=== PATIENT | female | born 1955 | race African-American/Black ===

== ENCOUNTER 2016-10-09 19:46 | Emergency (ER) | payer MEDICARE, MEDICAID ==
[2016-10-09] MEDS ORDERED: Benzonatate 100 MG CAP ONE (21:55)
[2016-10-09] MEDS ORDERED: AMOXicillin 250 MG CAP ONE (21:55)
[2016-10-09] MEDS ORDERED: Azithromycin 250 MG TAB ONE (21:58)
== END 2016-10-09 22:27 | disposition home or self-care (01) ==
LOC: MADERS 19:46
DX: J20.9 Acute bronchitis, unspecified (principal); D69.6 Thrombocytopenia, unspecified; Z79.899 Other long term (current) drug therapy
CPT/HCPCS: 99282

== ENCOUNTER 2016-12-22 19:58 | Outpatient (CLI) | payer MEDICARE, MEDICAID ==
[2016-12-25 02:21] LABS: HPV High Risk Type 16 Negative (Negative); HPV High Risk Type 18 Negative (Negative); HPV Other High Risk Types POSITIVE (Negative)
== END 2016-12-22 19:59 | disposition home or self-care (01) ==
LOC: MADLAB 19:58
PROVIDERS: ATTEND Family Medicine
DX: Z01.419 Encounter for gynecological examination (general) (routine) without abnormal findings (principal)
CPT/HCPCS: 87624; 88142; G0123

== ENCOUNTER 2019-04-09 14:39 | Emergency (ER) | payer MEDICAID, MEDICARE ==
[~2019-04-09 14:39] MED LIST: Iopamidol 370 76% 125 ML VIAL FS ONE; Lorazepam 2 MG/ML VIAL ONE; Sodium Chloride 0.9% 1,000 ML BAG ONE; Sodium Chloride 0.9% 100 ML BAG ONE
[2019-04-09 15:33] LABS: Bilirubin Negative (Negative); Blood, Urine Moderate (Negative); Clarity Clear (Clear); Glucose, Urine (Dipstick) Negative (Negative); Leukocyte Negative (Negative); Nitrite Negative (Negative); Protein, Urine (Dipstick) 30 mg/dL (Neg-Trace); Urobilinogen 0.2 mg/dL (Less than 2)
--- NOTE | 2019-04-09 15:46 | RAD ---
PORTABLE CHEST ONE VIEW: 04/09/19 at 3:37 p.m. HISTORY: Dyspnea after seizure. FINDINGS/IMPRESSION: Comparison is made with exam of 07/14/15. The heart size is borderline. The aorta is tortuous. There is mild pulmonary vascular congestion. No lobar consolidation, pneumothoraces, or large effusions are seen. 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 POS: [facility]
[2019-04-09 15:48] LABS: Bacteria/HPF Rare-Few HPF (None Seen); Squamous Epithelial 0-3 HPF (0-3); WBC/HPF None Seen HPF (0-3)
[2019-04-09 15:51] LABS: #Basophils 0.1 thou/uL (0.0-0.2); #Lymphocytes 0.8 thou/uL (1.20-3.40); #Monocytes 0.3 thou/uL (0.11-0.59); #Neutrophils 4.1 thou/uL (1.40-6.50); %Eosinophils 0.1 % (0.0-10.0); %Lymphocytes 15.2 % (21.0-51.0); %Monocytes 5.7 % (0.0-10.0); %Neutrophils 78.1 % (42.0-75.0); ALT (SGPT) 8 U/L (8-55); AST (SGOT) 11 U/L (5-34); Albumin 3.5 g/dL (3.4-4.8); Alkaline Phosphatase 72 U/L (40-110); Anion Gap 18 mmol/L (10-20); BUN (Urea Nitrogen) 14 mg/dL (9.8-20.1); Bilirubin, Total 0.7 mg/dL (0.2-1.2); Calc. Creatinine Clearance 0 mL/min (70-130); Calcium 8.5 mg/dL (7.8-10.44); Carbon Dioxide 19 mmol/L (23-31); Chloride 110 mmol/L (98-107); Estimated GFR-MDRD 66; Globulin 3.6 g/dL (2.4-3.5); Glucose 135 mg/dL (80-115); Hemoglobin 11.8 g/dL (12.0-16.0); Mean Corpuscular HGB CONC 31.8 g/dL (32.0-36.0); Mean Corpuscular Hemoglobin 28.5 pg (27.0-31.0); Mean Corpuscular Volume 89.6 fL (78.0-98.0); Mean Platelet Volume 6.7 fL (7.4-10.4); Platelet Count 112 thou/uL (130-400); Potassium 3.7 mmol/L (3.5-5.1); Protein, Total 7.1 g/dL (6.0-8.3); RBC Distribution Width 12.8 % (11.5-14.5); Red Blood Cell (RBC) Count 4.15 mill/uL (4.20-5.40); Sodium 143 mmol/L (136-145); White Blood Cell (WBC) Count 5.3 thou/uL (4.8-10.8)
[2019-04-09 15:52] LABS: Platelet Morphology Comment Appears Decreased
[2019-04-09] MEDS ORDERED: Lorazepam 2 MG/ML VIAL ONE (16:47)
[2019-04-09] MEDS ORDERED: Ketamine 50 MG/ML (10ML VIAL) ONE (17:02)
--- NOTE | 2019-04-09 17:41 | CT ---
EXAM: CT angiogram of the chest including 3-D rendering: HISTORY: Shortness of breath with tachycardia COMPARISON: None FINDINGS: Adequate opacification of the central pulmonary arteries. Some of the more peripheral pulmonary arter y ranges are poorly seen because of contrast bolus and because of very severe motion particularly in the mid and lower lung levels. No evidence for aortic aneurysm or dissection. No convincing CT evidence for acute pulmonary embolism. There is severe bilateral linear and interstitial and reticular nodular parenchymal changes with bila teral honeycombing evidence for severe nonspecific chronic interstitial lung disease. Dilatation of the main pulmonary arteries evidence for nonspecific pulmonary artery hypertension. 3 vessel coronary calcific disease. No evidence for mediastinal mass or adenopathy. No evidence for pleural or pericardial effusion. Small hiatal hernia. Some tortuous dilated veins in the mid right lobe of the liver which appear to b e portal veins possibly representing some type of a shunt, malformation, or other abnormal venous vascularity in this region. Conceivably this could be related to old trauma or prior biopsy. IMPRESSION: No convincing CT evidence for acute pulmonary embolism. Severely limited exam because of motion and contrast bolus. Severe lung changes evidence for chronic interstitial disease. Dilated tortuous veins in the mid right lobe of the liver, possibly some type of malformation or shun t. Dilated proximal pulmonary artery segments evidence for pulmonary artery hypertension.
== END 2019-04-09 19:45 | disposition short-term general hospital (02) ==
LOC: MADERS 14:39
DX: R56.9 Unspecified convulsions (principal); R06.03 Acute respiratory distress; R00.0 Tachycardia, unspecified; J45.909 Unspecified asthma, uncomplicated; Z79.51 Long term (current) use of inhaled steroids; Z79.899 Other long term (current) drug therapy
CPT/HCPCS: 36415; 51701; 71045; 71275; 80053; 81003; 81015; 83605; 83735; 83880; 84443; 85025; 87086; 93005; 96361; 96374; 96375; 96376; A4353; J2060; J3490; J7050; J7620; Q9967

== ENCOUNTER 2019-06-27 14:57 | Outpatient (CLI) | payer MEDICARE, MEDICAID ==
--- NOTE | 2019-06-27 15:24 | RAD ---
EXAM: 3 views of the left shoulder HISTORY: Chronic left shoulder pain COMPARISON: None FINDINGS: There is no evidence of acute fracture or dislocation. The patient has a left shoulder pros thesis without perihardware lucency or fracture. No soft tissue swelling is seen. The visualized thorax is unremarkable. IMPRESSION: No evidence of acute osseous abnormality.
--- NOTE | 2019-06-27 15:27 | RAD ---
EXAM: 3 views of the right knee HISTORY: Chronic right knee pain COMPARISON: None FINDINGS: No knee effusion is seen. There is no evidence of acute fracture or dislocation. Moderate f emorotibial joint space narrowing and osteophyte formation is seen. Moderate medial soft tissue swelling is present. IMPRESSION: Moderate right knee osteoarthritis
== END 2019-06-27 14:58 | disposition home or self-care (01) ==
LOC: MADRAD 14:57
PROVIDERS: ATTEND Family Medicine
DX: M25.512 Pain in left shoulder (principal); M25.561 Pain in right knee; G89.29 Other chronic pain; M17.11 Unilateral primary osteoarthritis, right knee

== ENCOUNTER 2019-09-19 16:02 | Outpatient (CLI) | payer MEDICARE, MEDICAID ==
--- NOTE | 2019-09-19 16:36 | RAD ---
Right shoulder 3 views HISTORY: Right shoulder pain. FINDINGS: Complete loss of joint space narrowing at the glenohumeral joint with chronic appearing larisa tructive changes of the articular surfaces of the humeral head and glenoid. Prominent osteophytosis. Heterotopic ossification along the inferior margin. Acromioclavicular alignment is maintained with mild osteophytosis. Prominence of the pulmonary arteries and fibrotic changes of the right upper lung are partially visua lized. IMPRESSION : Somewhat rapid, aggressive appearing erosions/changes of the glenohumeral joint, with destructive traci nges of the glenoid and articular surface of the humeral head. An aggressive process such as infection or neuropathic joint must be considered. Please consider urgent orthopedic evaluation.
== END 2019-09-19 16:03 | disposition home or self-care (01) ==
LOC: MADRAD 16:02
PROVIDERS: ATTEND Family Medicine
DX: M25.511 Pain in right shoulder (principal); R93.7 Abnormal findings on diagnostic imaging of other parts of musculoskeletal system

== ENCOUNTER 2019-11-27 14:11 | Emergency (ER) | payer MEDICARE, MEDICAID ==
[2019-11-27 14:42] LABS: Bilirubin Negative (Negative); Blood, Urine Small (Negative); Glucose, Urine (Dipstick) Negative (Negative); Leukocyte Negative (Negative); Nitrite Negative (Negative); Protein, Urine (Dipstick) > or equal to 300 mg/dL (Neg-Trace)
[2019-11-27 14:43] LABS: Clarity Hazy (Clear)
[2019-11-27] MEDS ORDERED: Sodium Chloride 0.9% 1,000 ML ONE ×4 (14:50→18:37)
[2019-11-27 14:56] LABS: Bacteria/HPF Rare-Few HPF (None Seen); RBC/HPF 0-3 HPF (0-3); Squamous Epithelial 0-3 HPF (0-3); WBC/HPF 0-3 HPF (0-3)
[2019-11-27 14:58] LABS: #Lymphocytes 0.4 thou/uL (1.20-3.40); #Monocytes 0.4 thou/uL (0.11-0.59); #Neutrophils 5.9 thou/uL (1.40-6.50); %Basophils 0.3 % (0.0-1.0); %Lymphocytes 6.3 % (21.0-51.0); %Monocytes 5.5 % (0.0-10.0); %Neutrophils 87.9 % (42.0-75.0); Hemoglobin 12.8 g/dL (12.0-16.0); Mean Corpuscular HGB CONC 31.5 g/dL (32.0-36.0); Mean Corpuscular Hemoglobin 28.6 pg (27.0-31.0); Mean Corpuscular Volume 90.8 fL (78.0-98.0); Mean Platelet Volume 7.2 fL (7.4-10.4); Platelet Count 135 thou/uL (130-400); RBC Distribution Width 12.3 % (11.5-14.5); Red Blood Cell (RBC) Count 4.46 mill/uL (4.20-5.40); White Blood Cell (WBC) Count 6.7 thou/uL (4.8-10.8)
[2019-11-27 15:12] LABS: Anion Gap 20 mmol/L (10-20); BUN (Urea Nitrogen) 19 mg/dL (9.8-20.1); Calc. Creatinine Clearance 0 mL/min (70-130); Calcium 9.6 mg/dL (7.8-10.44); Carbon Dioxide 19 mmol/L (23-31); Chloride 109 mmol/L (98-107); Estimated GFR-MDRD 61; Glucose 151 mg/dL (80-115); Potassium 4.1 mmol/L (3.5-5.1); Sodium 144 mmol/L (136-145)
[2019-11-27 17:59] LABS: Lactic Acid 2.4 mmol/L (0.5-2.2)
[2019-11-27 21:06] LABS: Lactic Acid 0.7 mmol/L (0.5-2.2)
== END 2019-11-27 21:54 | disposition home or self-care (01) ==
LOC: MADERS 14:11
DX: G40.909 Epilepsy, unspecified, not intractable, without status epilepticus (principal); E86.0 Dehydration; J45.909 Unspecified asthma, uncomplicated; Z79.899 Other long term (current) drug therapy
CPT/HCPCS: 36415; 51701; 80048; 81003; 81015; 83605; 84484; 85025; 87040; 93005; 96360; 96361; A4353; J7050

== ENCOUNTER 2020-09-05 16:41 | Inpatient (IN) | payer MEDICARE, MEDICAID ==
[2020-09-05] MEDS: Montelukast Sodium 10 mg Tablet PO SCH (20:13)
[2020-09-05] MEDS: Aspirin 81 mg Enteric Coated Tablet PO SCH (20:13)
[2020-09-05] MEDS: Ascorbic Acid 500 mg Chewable Tablet PO SCH (20:14)
[2020-09-05] MEDS: Acetaminophen 325 MG TAB PO SCH (23:11)
[2020-09-06] MEDS: Acetaminophen 325 MG TAB PO SCH ×4 (05:11→23:13)
[2020-09-06] MEDS: Oxybutynin ER 5 MG TAB PO SCH (08:44)
[2020-09-06] MEDS: levETIRAcetam 500 MG TAB PO SCH (08:44)
[2020-09-06] MEDS: Aspirin 81 mg Enteric Coated Tablet PO SCH ×2 (08:44→20:15)
[2020-09-06] MEDS: Ascorbic Acid 500 mg Chewable Tablet PO SCH ×2 (08:44→20:15)
[2020-09-06] MEDS: Folic Acid 1 MG TAB PO SCH (08:44)
[2020-09-06] MEDS: Acetaminophen/Codeine 30-300mg Tablet PO PRN (10:10)
[2020-09-06] MEDS: Montelukast Sodium 10 mg Tablet PO SCH (20:15)
[2020-09-07] MEDS: Acetaminophen/Codeine 30-300mg Tablet PO PRN (02:00)
[2020-09-07] MEDS: Acetaminophen 325 MG TAB PO SCH ×3 (05:19→18:06)
[2020-09-07] MEDS: Ascorbic Acid 500 mg Chewable Tablet PO SCH ×2 (09:07→22:44)
[2020-09-07] MEDS: Oxybutynin ER 5 MG TAB PO SCH (09:07)
[2020-09-07] MEDS: Aspirin 81 mg Enteric Coated Tablet PO SCH ×2 (09:07→22:45)
[2020-09-07] MEDS: Folic Acid 1 MG TAB PO SCH (09:07)
[2020-09-07] MEDS: levETIRAcetam 500 MG TAB PO SCH (09:07)
[2020-09-07] MEDS: Melatonin 3 MG TAB PO SCH (22:43)
[2020-09-07] MEDS: Montelukast Sodium 10 mg Tablet PO SCH (22:44)
[2020-09-08] MEDS: Acetaminophen 325 MG TAB PO SCH ×4 (00:47→17:27)
[2020-09-08] MEDS: levETIRAcetam 500 MG TAB PO SCH (08:15)
[2020-09-08] MEDS: Ascorbic Acid 500 mg Chewable Tablet PO SCH ×2 (08:15→20:11)
[2020-09-08] MEDS: Aspirin 81 mg Enteric Coated Tablet PO SCH ×2 (08:15→20:12)
[2020-09-08] MEDS: Folic Acid 1 MG TAB PO SCH (08:15)
[2020-09-08] MEDS: Oxybutynin ER 5 MG TAB PO SCH (08:16)
[2020-09-08] MEDS: Acetaminophen/Codeine 30-300mg Tablet PO PRN (10:26)
[2020-09-08] MEDS: Melatonin 3 MG TAB PO SCH (20:12)
[2020-09-08] MEDS: Montelukast Sodium 10 mg Tablet PO SCH (20:12)
[2020-09-09] MEDS: Acetaminophen 325 MG TAB PO SCH ×5 (00:03→23:18)
[2020-09-09] MEDS: Ascorbic Acid 500 mg Chewable Tablet PO SCH ×2 (08:38→20:23)
[2020-09-09] MEDS: Aspirin 81 mg Enteric Coated Tablet PO SCH ×2 (08:38→20:23)
[2020-09-09] MEDS: Oxybutynin ER 5 MG TAB PO SCH (08:39)
[2020-09-09] MEDS: levETIRAcetam 500 MG TAB PO SCH (08:39)
[2020-09-09] MEDS: Folic Acid 1 MG TAB PO SCH (08:39)
[2020-09-09] MEDS: Melatonin 3 MG TAB PO SCH (20:23)
[2020-09-09] MEDS: Montelukast Sodium 10 mg Tablet PO SCH (20:23)
[2020-09-09 22:03] LABS: Bilirubin Negative (Negative); Blood, Urine Trace (Negative); Clarity Slightly Cloudy (Clear); Glucose, Urine (Dipstick) Negative (Negative); Ketone, Urine Negative (Negative); Leukocyte Large (Negative); Nitrite Positive (Negative); Protein, Urine (Dipstick) Negative (Neg-Trace); pH, Urine 6.5 (5.0-9.0)
[2020-09-09 22:09] LABS: Bacteria/HPF 3+ HPF (None Seen); RBC/HPF None Seen HPF (0-3); Squamous Epithelial 0-3 HPF (0-3); WBC/HPF 21-50 HPF (0-3)
[2020-09-09 22:10] LABS: Urine Culture Reflex Yes Yes
[2020-09-09] MEDS ORDERED: Sulfameth/Trimethoprim DS 800-160mg TAB PO SCH (23:15)
[2020-09-10] MEDS: Acetaminophen 325 MG TAB PO SCH ×4 (05:18→23:22)
[2020-09-10] MEDS: Acetaminophen/Codeine 30-300mg Tablet PO PRN (07:27)
[2020-09-10] MEDS: Ascorbic Acid 500 mg Chewable Tablet PO SCH ×2 (09:47→20:48)
[2020-09-10] MEDS: Aspirin 81 mg Enteric Coated Tablet PO SCH ×2 (09:47→20:48)
[2020-09-10] MEDS: Folic Acid 1 MG TAB PO SCH (09:48)
[2020-09-10] MEDS: levETIRAcetam 500 MG TAB PO SCH (09:48)
[2020-09-10] MEDS: Sulfameth/Trimethoprim DS 800-160mg TAB PO SCH ×2 (09:48→20:48)
[2020-09-10] MEDS: Oxybutynin ER 5 MG TAB PO SCH (09:48)
[2020-09-10] MEDS: Montelukast Sodium 10 mg Tablet PO SCH (20:48)
[2020-09-10] MEDS: Melatonin 3 MG TAB PO SCH (20:48)
[2020-09-11] MEDS: Acetaminophen 325 MG TAB PO SCH ×4 (05:11→23:40)
[2020-09-11] MEDS: Acetaminophen/Codeine 30-300mg Tablet PO PRN (07:34)
[2020-09-11] MEDS: Folic Acid 1 MG TAB PO SCH (07:36)
[2020-09-11] MEDS: Aspirin 81 mg Enteric Coated Tablet PO SCH ×2 (07:36→21:04)
[2020-09-11] MEDS: Ascorbic Acid 500 mg Chewable Tablet PO SCH ×2 (07:36→21:00)
[2020-09-11] MEDS: levETIRAcetam 500 MG TAB PO SCH (07:36)
[2020-09-11] MEDS: Oxybutynin ER 5 MG TAB PO SCH (07:36)
[2020-09-11] MEDS: Ferrous Sulfate 325 MG TAB PO SCH (07:36)
[2020-09-11] MEDS: Sulfameth/Trimethoprim DS 800-160mg TAB PO SCH ×2 (07:37→21:06)
[2020-09-11] MEDS: Melatonin 3 MG TAB PO SCH (21:05)
[2020-09-11] MEDS: Montelukast Sodium 10 mg Tablet PO SCH (21:06)
[2020-09-12] MEDS: Acetaminophen 325 MG TAB PO SCH ×3 (05:18→17:35)
[2020-09-12] MEDS: Folic Acid 1 MG TAB PO SCH (08:51)
[2020-09-12] MEDS: Oxybutynin ER 5 MG TAB PO SCH (08:51)
[2020-09-12] MEDS: levETIRAcetam 500 MG TAB PO SCH (08:51)
[2020-09-12] MEDS: Aspirin 81 mg Enteric Coated Tablet PO SCH ×2 (08:51→20:05)
[2020-09-12] MEDS: Ferrous Sulfate 325 MG TAB PO SCH (08:51)
[2020-09-12] MEDS: Ascorbic Acid 500 mg Chewable Tablet PO SCH ×2 (08:51→20:05)
[2020-09-12] MEDS: Sulfameth/Trimethoprim DS 800-160mg TAB PO SCH ×2 (08:52→20:05)
[2020-09-12] MEDS: Montelukast Sodium 10 mg Tablet PO SCH (20:06)
[2020-09-12] MEDS: risperiDONE 0.5 MG TAB PO PRN (20:06)
[2020-09-12] MEDS: Melatonin 3 MG TAB PO SCH (20:08)
[2020-09-13] MEDS: Acetaminophen 325 MG TAB PO SCH ×7 (00:10→23:20)
[2020-09-13 06:22] LABS: #Lymphocytes 0.4 thou/uL (1.20-3.40); #Monocytes 0.3 thou/uL (0.11-0.59); #Neutrophils 2.5 thou/uL (1.40-6.50); %Basophils 0.5 % (0.0-1.0); %Eosinophils 0.2 % (0.0-10.0); %Lymphocytes 13.5 % (21.0-51.0); %Monocytes 8.4 % (0.0-10.0); %Neutrophils 77.4 % (42.0-75.0); Hemoglobin 8.5 g/dL (12.0-16.0); Mean Corpuscular HGB CONC 31.6 g/dL (32.0-36.0); Mean Corpuscular Hemoglobin 30.1 pg (27.0-31.0); Mean Corpuscular Volume 95.3 fL (78.0-98.0); Mean Platelet Volume 6.5 fL (7.4-10.4); Platelet Count 180 thou/uL (130-400); RBC Distribution Width 17.3 % (11.5-14.5); Red Blood Cell (RBC) Count 2.82 mill/uL (4.20-5.40); White Blood Cell (WBC) Count 3.3 thou/uL (4.8-10.8)
[2020-09-13 06:49] LABS: Anion Gap 13 mmol/L (10-20); BUN (Urea Nitrogen) 11 mg/dL (9.8-20.1); Calc. Creatinine Clearance 88 mL/min (70-130); Calcium 8.4 mg/dL (7.8-10.44); Carbon Dioxide 23 mmol/L (23-31); Chloride 109 mmol/L (98-107); Glucose 106 mg/dL (80-115); Potassium 4.3 mmol/L (3.5-5.1); Sodium 141 mmol/L (136-145)
[2020-09-13] MEDS: Sulfameth/Trimethoprim DS 800-160mg TAB PO SCH (08:33)
[2020-09-13] MEDS: Ascorbic Acid 500 mg Chewable Tablet PO SCH ×2 (08:34→20:35)
[2020-09-13] MEDS: Aspirin 81 mg Enteric Coated Tablet PO SCH ×2 (08:34→20:38)
[2020-09-13] MEDS: Ferrous Sulfate 325 MG TAB PO SCH (08:34)
[2020-09-13] MEDS: Folic Acid 1 MG TAB PO SCH (08:34)
[2020-09-13] MEDS: Oxybutynin ER 5 MG TAB PO SCH (08:34)
[2020-09-13] MEDS: levETIRAcetam 500 MG TAB PO SCH (08:34)
[2020-09-13] MEDS: Montelukast Sodium 10 mg Tablet PO SCH (20:37)
[2020-09-13] MEDS: Melatonin 3 MG TAB PO SCH (20:37)
[2020-09-14] MEDS: Acetaminophen 325 MG TAB PO SCH ×3 (05:30→16:53)
[2020-09-14] MEDS: Ascorbic Acid 500 mg Chewable Tablet PO SCH ×2 (08:22→20:03)
[2020-09-14] MEDS: Folic Acid 1 MG TAB PO SCH (08:22)
[2020-09-14] MEDS: levETIRAcetam 500 MG TAB PO SCH (08:22)
[2020-09-14] MEDS: Aspirin 81 mg Enteric Coated Tablet PO SCH ×2 (08:22→20:03)
[2020-09-14] MEDS: Oxybutynin ER 5 MG TAB PO SCH (08:22)
[2020-09-14] MEDS: Ferrous Sulfate 325 MG TAB PO SCH (08:22)
[2020-09-14] MEDS: Montelukast Sodium 10 mg Tablet PO SCH (20:04)
[2020-09-14] MEDS: risperiDONE 0.5 MG TAB PO PRN (20:04)
[2020-09-14] MEDS: Melatonin 3 MG TAB PO SCH (20:14)
[2020-09-15] MEDS: Acetaminophen 325 MG TAB PO SCH ×5 (00:20→18:51)
[2020-09-15] MEDS: Ferrous Sulfate 325 MG TAB PO SCH (09:12)
[2020-09-15] MEDS: Folic Acid 1 MG TAB PO SCH (09:12)
[2020-09-15] MEDS: levETIRAcetam 500 MG TAB PO SCH (09:12)
[2020-09-15] MEDS: Ascorbic Acid 500 mg Chewable Tablet PO SCH ×2 (09:12→21:29)
[2020-09-15] MEDS: Aspirin 81 mg Enteric Coated Tablet PO SCH ×2 (09:12→21:29)
[2020-09-15] MEDS: Oxybutynin ER 5 MG TAB PO SCH (09:12)
[2020-09-15] MEDS: Montelukast Sodium 10 mg Tablet PO SCH (21:29)
[2020-09-15] MEDS: risperiDONE 0.5 MG TAB PO PRN (21:29)
[2020-09-15] MEDS: Melatonin 3 MG TAB PO SCH (21:30)
[2020-09-16] MEDS: Acetaminophen 325 MG TAB PO SCH ×5 (00:53→23:57)
[2020-09-16] MEDS: Ferrous Sulfate 325 MG TAB PO SCH (08:26)
[2020-09-16] MEDS: Ascorbic Acid 500 mg Chewable Tablet PO SCH ×2 (08:27→21:29)
[2020-09-16] MEDS: Folic Acid 1 MG TAB PO SCH (08:27)
[2020-09-16] MEDS: Oxybutynin ER 5 MG TAB PO SCH (08:27)
[2020-09-16] MEDS: risperiDONE 0.5 MG TAB PO PRN ×2 (08:27→21:29)
[2020-09-16] MEDS: levETIRAcetam 500 MG TAB PO SCH (08:27)
[2020-09-16] MEDS: Aspirin 81 mg Enteric Coated Tablet PO SCH ×2 (08:27→21:29)
[2020-09-16] MEDS: Acetaminophen/Codeine 30-300mg Tablet PO PRN (10:43)
[2020-09-16] MEDS: ALPRAZolam 0.25 MG TAB PO PRN (18:52)
[2020-09-16] MEDS: Montelukast Sodium 10 mg Tablet PO SCH (21:29)
[2020-09-16] MEDS: Melatonin 3 MG TAB PO SCH (21:29)
[2020-09-17] MEDS: Acetaminophen 325 MG TAB PO SCH ×3 (06:04→18:52)
[2020-09-17] MEDS: levETIRAcetam 500 MG TAB PO SCH (08:16)
[2020-09-17] MEDS: Folic Acid 1 MG TAB PO SCH (08:16)
[2020-09-17] MEDS: Oxybutynin ER 5 MG TAB PO SCH (08:16)
[2020-09-17] MEDS: Ferrous Sulfate 325 MG TAB PO SCH (08:16)
[2020-09-17] MEDS: Ascorbic Acid 500 mg Chewable Tablet PO SCH ×2 (08:17→20:59)
[2020-09-17] MEDS: Aspirin 81 mg Enteric Coated Tablet PO SCH ×2 (08:17→20:59)
[2020-09-17] MEDS ORDERED: risperiDONE 0.5 MG TAB PO SCH (13:30)
[2020-09-17] MEDS: risperiDONE 0.5 MG TAB PO SCH (21:00)
[2020-09-17] MEDS: Melatonin 3 MG TAB PO SCH (21:00)
[2020-09-17] MEDS: Montelukast Sodium 10 mg Tablet PO SCH (21:00)
[2020-09-18] MEDS: Acetaminophen 325 MG TAB PO SCH ×4 (01:23→18:39)
[2020-09-18] MEDS: Ascorbic Acid 500 mg Chewable Tablet PO SCH ×2 (08:04→21:06)
[2020-09-18] MEDS: Folic Acid 1 MG TAB PO SCH (08:04)
[2020-09-18] MEDS: levETIRAcetam 500 MG TAB PO SCH (08:04)
[2020-09-18] MEDS: risperiDONE 0.5 MG TAB PO SCH ×2 (08:04→21:07)
[2020-09-18] MEDS: Ferrous Sulfate 325 MG TAB PO SCH (08:04)
[2020-09-18] MEDS: Aspirin 81 mg Enteric Coated Tablet PO SCH ×2 (08:04→21:06)
[2020-09-18] MEDS: Oxybutynin ER 5 MG TAB PO SCH (08:04)
[2020-09-18] MEDS: Polyethylene Glycol 3350 17 GM Packet PO SCH (08:04)
[2020-09-18] MEDS: Acetaminophen/Codeine 30-300mg Tablet PO PRN (08:12)
[2020-09-18] MEDS: Melatonin 3 MG TAB PO SCH (21:06)
[2020-09-18] MEDS: Montelukast Sodium 10 mg Tablet PO SCH (21:07)
[2020-09-19] MEDS: Acetaminophen 325 MG TAB PO SCH ×4 (00:49→17:23)
[2020-09-19] MEDS: Oxybutynin ER 5 MG TAB PO SCH (08:19)
[2020-09-19] MEDS: Folic Acid 1 MG TAB PO SCH (08:19)
[2020-09-19] MEDS: Ascorbic Acid 500 mg Chewable Tablet PO SCH ×2 (08:19→20:09)
[2020-09-19] MEDS: Aspirin 81 mg Enteric Coated Tablet PO SCH ×2 (08:19→20:09)
[2020-09-19] MEDS: levETIRAcetam 500 MG TAB PO SCH (08:19)
[2020-09-19] MEDS: Ferrous Sulfate 325 MG TAB PO SCH (08:19)
[2020-09-19] MEDS: risperiDONE 0.5 MG TAB PO SCH ×2 (08:20→20:09)
[2020-09-19] MEDS: Polyethylene Glycol 3350 17 GM Packet PO SCH (08:20)
[2020-09-19] MEDS: Melatonin 3 MG TAB PO SCH (20:09)
[2020-09-19] MEDS: Montelukast Sodium 10 mg Tablet PO SCH (20:11)
[2020-09-19] MEDS: Acetaminophen/Codeine 30-300mg Tablet PO PRN (20:46)
[2020-09-20] MEDS: Acetaminophen 325 MG TAB PO SCH ×5 (00:49→23:31)
[2020-09-20] MEDS: Oxybutynin ER 5 MG TAB PO SCH (09:15)
[2020-09-20] MEDS: levETIRAcetam 500 MG TAB PO SCH (09:15)
[2020-09-20] MEDS: risperiDONE 0.5 MG TAB PO SCH ×2 (09:15→20:32)
[2020-09-20] MEDS: Polyethylene Glycol 3350 17 GM Packet PO SCH (09:15)
[2020-09-20] MEDS: Aspirin 81 mg Enteric Coated Tablet PO SCH ×2 (09:15→20:32)
[2020-09-20] MEDS: Ascorbic Acid 500 mg Chewable Tablet PO SCH ×2 (09:16→20:32)
[2020-09-20] MEDS: Ferrous Sulfate 325 MG TAB PO SCH (09:16)
[2020-09-20] MEDS: Folic Acid 1 MG TAB PO SCH (09:16)
[2020-09-20] MEDS: Melatonin 3 MG TAB PO SCH (20:32)
[2020-09-20] MEDS: Montelukast Sodium 10 mg Tablet PO SCH (20:32)
[2020-09-20] MEDS: Acetaminophen/Codeine 30-300mg Tablet PO PRN (21:52)
[2020-09-21] MEDS: Acetaminophen 325 MG TAB PO SCH ×4 (05:37→23:56)
[2020-09-21] MEDS: levETIRAcetam 500 MG TAB PO SCH (09:17)
[2020-09-21] MEDS: Oxybutynin ER 5 MG TAB PO SCH (09:17)
[2020-09-21] MEDS: risperiDONE 0.5 MG TAB PO SCH (09:17)
[2020-09-21] MEDS: Ascorbic Acid 500 mg Chewable Tablet PO SCH ×2 (09:17→21:03)
[2020-09-21] MEDS: Aspirin 81 mg Enteric Coated Tablet PO SCH ×2 (09:17→21:03)
[2020-09-21] MEDS: Ferrous Sulfate 325 MG TAB PO SCH (09:17)
[2020-09-21] MEDS: Folic Acid 1 MG TAB PO SCH (09:18)
[2020-09-21] MEDS: Polyethylene Glycol 3350 17 GM Packet PO SCH (09:18)
[2020-09-21] MEDS: ALPRAZolam 0.25 MG TAB PO PRN (09:26)
[2020-09-21] MEDS: Melatonin 3 MG TAB PO SCH (21:03)
[2020-09-21] MEDS: risperiDONE 1 MG TAB PO SCH (21:03)
[2020-09-21] MEDS: Acetaminophen/Codeine 30-300mg Tablet PO PRN (21:05)
[2020-09-21] MEDS: Montelukast Sodium 10 mg Tablet PO SCH (21:05)
[2020-09-22] MEDS: Acetaminophen 325 MG TAB PO SCH ×3 (05:25→17:13)
[2020-09-22] MEDS: Ferrous Sulfate 325 MG TAB PO SCH (08:22)
[2020-09-22] MEDS: Polyethylene Glycol 3350 17 GM Packet PO SCH (08:22)
[2020-09-22] MEDS: risperiDONE 0.5 MG TAB PO SCH (08:23)
[2020-09-22] MEDS: Oxybutynin ER 5 MG TAB PO SCH (08:23)
[2020-09-22] MEDS: Folic Acid 1 MG TAB PO SCH (08:23)
[2020-09-22] MEDS: levETIRAcetam 500 MG TAB PO SCH (08:23)
[2020-09-22] MEDS: Aspirin 81 mg Enteric Coated Tablet PO SCH ×2 (08:23→20:10)
[2020-09-22] MEDS: Ascorbic Acid 500 mg Chewable Tablet PO SCH ×2 (08:23→20:10)
[2020-09-22] MEDS ORDERED: Mag-Al Plus 1200 MG/1200 MG/120 MG/30 ML UDCUP PO PRN (10:38)
[2020-09-22] MEDS: Melatonin 3 MG TAB PO SCH (20:10)
[2020-09-22] MEDS: Montelukast Sodium 10 mg Tablet PO SCH (20:10)
[2020-09-22] MEDS: risperiDONE 1 MG TAB PO SCH (20:10)
[2020-09-22] MEDS: Acetaminophen/Codeine 30-300mg Tablet PO PRN (20:11)
[2020-09-23] MEDS: Acetaminophen 325 MG TAB PO SCH ×4 (01:11→17:23)
[2020-09-23] MEDS: Ascorbic Acid 500 mg Chewable Tablet PO SCH ×2 (08:23→21:31)
[2020-09-23] MEDS: Oxybutynin ER 5 MG TAB PO SCH (08:23)
[2020-09-23] MEDS: levETIRAcetam 500 MG TAB PO SCH (08:23)
[2020-09-23] MEDS: Aspirin 81 mg Enteric Coated Tablet PO SCH ×2 (08:23→21:31)
[2020-09-23] MEDS: Ferrous Sulfate 325 MG TAB PO SCH (08:23)
[2020-09-23] MEDS: Folic Acid 1 MG TAB PO SCH (08:23)
[2020-09-23] MEDS: risperiDONE 0.5 MG TAB PO SCH (08:24)
[2020-09-23] MEDS: Polyethylene Glycol 3350 17 GM Packet PO SCH (08:24)
[2020-09-23] MEDS: Melatonin 3 MG TAB PO SCH (21:32)
[2020-09-23] MEDS: risperiDONE 1 MG TAB PO SCH (21:32)
[2020-09-23] MEDS: Montelukast Sodium 10 mg Tablet PO SCH (21:32)
[2020-09-24] MEDS: Acetaminophen 325 MG TAB PO SCH ×5 (00:27→23:11)
[2020-09-24] MEDS: Ascorbic Acid 500 mg Chewable Tablet PO SCH ×2 (08:44→20:32)
[2020-09-24] MEDS: Aspirin 81 mg Enteric Coated Tablet PO SCH ×2 (08:44→20:32)
[2020-09-24] MEDS: Ferrous Sulfate 325 MG TAB PO SCH (08:44)
[2020-09-24] MEDS: levETIRAcetam 500 MG TAB PO SCH (08:44)
[2020-09-24] MEDS: Folic Acid 1 MG TAB PO SCH (08:44)
[2020-09-24] MEDS: Polyethylene Glycol 3350 17 GM Packet PO SCH ×2 (08:44→08:45)
[2020-09-24] MEDS: Oxybutynin ER 5 MG TAB PO SCH (08:45)
[2020-09-24] MEDS: risperiDONE 0.5 MG TAB PO SCH (08:45)
[2020-09-24 11:47] VITALS: BMI 32.5
[2020-09-24] MEDS: Montelukast Sodium 10 mg Tablet PO SCH (20:32)
[2020-09-24] MEDS: Melatonin 3 MG TAB PO SCH (20:32)
[2020-09-24] MEDS: risperiDONE 1 MG TAB PO SCH (20:33)
[2020-09-25] MEDS: ALPRAZolam 0.25 MG TAB PO PRN ×2 (01:14→09:22)
[2020-09-25] MEDS: Acetaminophen 325 MG TAB PO SCH ×4 (05:22→21:01)
[2020-09-25] MEDS ORDERED: Bisacodyl 10 MG SUPP PR PRN (06:57)
[2020-09-25] MEDS: Folic Acid 1 MG TAB PO SCH (09:22)
[2020-09-25] MEDS: levETIRAcetam 500 MG TAB PO SCH (09:22)
[2020-09-25] MEDS: Ascorbic Acid 500 mg Chewable Tablet PO SCH ×2 (09:22→21:01)
[2020-09-25] MEDS: risperiDONE 0.5 MG TAB PO SCH (09:23)
[2020-09-25] MEDS: Ferrous Sulfate 325 MG TAB PO SCH (09:23)
[2020-09-25] MEDS: Aspirin 81 mg Enteric Coated Tablet PO SCH ×2 (09:23→21:01)
[2020-09-25] MEDS: Senokot S 8.6-50 MG TAB PO SCH ×2 (09:23→21:02)
[2020-09-25] MEDS: Oxybutynin ER 5 MG TAB PO SCH (09:23)
[2020-09-25] MEDS: risperiDONE 1 MG TAB PO SCH (21:01)
[2020-09-25] MEDS: Montelukast Sodium 10 mg Tablet PO SCH (21:02)
[2020-09-25] MEDS: Melatonin 3 MG TAB PO SCH (21:02)
[2020-09-26] MEDS: Acetaminophen 325 MG TAB PO SCH ×5 (06:00→23:55)
[2020-09-26] MEDS: Polyethylene Glycol 3350 17 GM Packet PO SCH (09:08)
[2020-09-26] MEDS: Oxybutynin ER 5 MG TAB PO SCH (09:09)
[2020-09-26] MEDS: levETIRAcetam 500 MG TAB PO SCH (09:09)
[2020-09-26] MEDS: Aspirin 81 mg Enteric Coated Tablet PO SCH ×2 (09:09→21:39)
[2020-09-26] MEDS: Folic Acid 1 MG TAB PO SCH (09:09)
[2020-09-26] MEDS: Ascorbic Acid 500 mg Chewable Tablet PO SCH ×2 (09:09→21:39)
[2020-09-26] MEDS: Ferrous Sulfate 325 MG TAB PO SCH (09:09)
[2020-09-26] MEDS: risperiDONE 0.5 MG TAB PO SCH (09:09)
[2020-09-26] MEDS: Senokot S 8.6-50 MG TAB PO SCH ×2 (09:09→21:39)
[2020-09-26] MEDS ORDERED: Milk Of Magnesia 30 ML UDCUP PO PRN (16:02)
[2020-09-26] MEDS ORDERED: Fleet Enema 133 ML BOT FS SCH (16:15)
[2020-09-26] MEDS: Montelukast Sodium 10 mg Tablet PO SCH (21:39)
[2020-09-26] MEDS: Melatonin 3 MG TAB PO SCH (21:39)
[2020-09-26] MEDS: risperiDONE 1 MG TAB PO SCH (21:39)
[2020-09-27] MEDS: Acetaminophen 325 MG TAB PO SCH ×2 (05:18→11:52)
[2020-09-27 07:39] LABS: #Lymphocytes 0.3 thou/uL (1.20-3.40); #Monocytes 0.5 thou/uL (0.11-0.59); %Basophils 1.1 % (0.0-1.0); %Eosinophils 0.1 % (0.0-10.0); %Monocytes 11.9 % (0.0-10.0); Hemoglobin 10.2 g/dL (12.0-16.0); Mean Corpuscular HGB CONC 30.7 g/dL (32.0-36.0); Mean Corpuscular Hemoglobin 30.6 pg (27.0-31.0); Mean Corpuscular Volume 99.7 fL (78.0-98.0); Mean Platelet Volume 8.3 fL (7.4-10.4); Platelet Count 153 thou/uL (130-400); RBC Distribution Width 15.4 % (11.5-14.5); Red Blood Cell (RBC) Count 3.32 mill/uL (4.20-5.40); White Blood Cell (WBC) Count 3.8 thou/uL (4.8-10.8)
[2020-09-27] MEDS: Senokot S 8.6-50 MG TAB PO SCH (08:40)
[2020-09-27] MEDS: Oxybutynin ER 5 MG TAB PO SCH (08:41)
[2020-09-27] MEDS: Ferrous Sulfate 325 MG TAB PO SCH (08:41)
[2020-09-27] MEDS: levETIRAcetam 500 MG TAB PO SCH (08:41)
[2020-09-27] MEDS: risperiDONE 0.5 MG TAB PO SCH (08:41)
[2020-09-27] MEDS: Aspirin 81 mg Enteric Coated Tablet PO SCH (08:41)
[2020-09-27] MEDS: Polyethylene Glycol 3350 17 GM Packet PO SCH (08:41)
[2020-09-27] MEDS: Folic Acid 1 MG TAB PO SCH (08:42)
[2020-09-27] MEDS: Ascorbic Acid 500 mg Chewable Tablet PO SCH (08:42)
[2020-09-27 10:14] VITALS: BP 114/72; TEMP 98.4
== END 2020-09-27 15:35 | disposition home health service (06) | DRG 560 ==
LOC: MADMS 16:41
PROVIDERS: ADMIT Family Medicine; ATTEND Family Medicine
DX: S72.21XD Displaced subtrochanteric fracture of right femur, subsequent encounter for closed fracture with routine healing (principal); D62 Acute posthemorrhagic anemia; N39.0 Urinary tract infection, site not specified; D69.3 Immune thrombocytopenic purpura; F23 Brief psychotic disorder; E66.01 Morbid (severe) obesity due to excess calories; J45.909 Unspecified asthma, uncomplicated; F89 Unspecified disorder of psychological development; G40.909 Epilepsy, unspecified, not intractable, without status epilepticus; F79 Unspecified intellectual disabilities; R26.89 Other abnormalities of gait and mobility; R41.0 Disorientation, unspecified; B95.2 Enterococcus as the cause of diseases classified elsewhere; R53.81 Other malaise; S90.821A Blister (nonthermal), right foot, initial encounter; N32.81 Overactive bladder; K59.01 Slow transit constipation; Z98.51 Tubal ligation status; Z88.0 Allergy status to penicillin; Z79.82 Long term (current) use of aspirin; Z68.32 Body mass index [BMI] 32.0-32.9, adult; Z91.81 History of falling; W18.30XD Fall on same level, unspecified, subsequent encounter
CPT/HCPCS: 36415; 74176; 80048; 80177; 81001; 85025; 87077; 87086; 87186; 94640; J7620